=== PATIENT | male | born 1990 | race Caucasian/White ===

== ENCOUNTER → 2019-11-22 16:30 | Outpatient (BNVA) | payer SELFPAY | PROVIDERS: Family Provider Nurse Practitioner; PCP Nurse Practitioner; Visit Provider Nurse Practitioner Family | DX: R53.83 Other fatigue (principal); J30.89 Other allergic rhinitis; R03.0 Elevated blood-pressure reading, without diagnosis of hypertension; W57.XXXA Bitten or stung by nonvenomous insect and other nonvenomous arthropods, initial encounter; M25.50 Pain in unspecified joint | CPT/HCPCS: 80053; 84443; 85025; 85651 ==

== ENCOUNTER → 2020-03-18 13:33 | Outpatient (BNVA) | payer OTHER, SELFPAY | PROVIDERS: Family Provider Nurse Practitioner; PCP Nurse Practitioner; Visit Provider Internal Medicine | DX: Z20.828 Contact with and (suspected) exposure to other viral communicable diseases (principal) | CPT/HCPCS: 87635 ==

== ENCOUNTER → 2022-06-04 11:45 | Outpatient (BNVA) | payer OTHER, SELFPAY | PROVIDERS: Family Provider Nurse Practitioner; PCP Nurse Practitioner Family; Visit Provider Nurse Practitioner Family | DX: R00.2 Palpitations (principal); R53.83 Other fatigue; Z13.6 Encounter for screening for cardiovascular disorders; R03.0 Elevated blood-pressure reading, without diagnosis of hypertension; F32.A Depression, unspecified | CPT/HCPCS: 80053; 80061; 82306; 82607; 83735; 84403; 84443; 85025 ==

== ENCOUNTER → 2022-08-28 08:49 | Outpatient (BNVA) | payer OTHER, SELFPAY | PROVIDERS: Family Provider Nurse Practitioner; PCP Nurse Practitioner Family; Visit Provider Nurse Practitioner Family | DX: R53.83 Other fatigue (principal); E55.9 Vitamin D deficiency, unspecified | CPT/HCPCS: 82306; 84403 ==

== ENCOUNTER 2023-02-27 13:56 | Emergency (ER) | payer SELFPAY ==
[2023-02-27 14:30] VITALS: PULSE 119; RESP 22; TEMP 36.5; O2SAT 96; BMI 23.7
--- NOTE | 2023-02-27 14:45 | ECG_ITS ---
[facility] Test Date: 2023-02-27 Pat Name: Teja Olson Department: Room: Gender: Male [employer]: : 1990 Requested By: Howard Majano Order Number: [id number] Albert MD: Laurie Arias M.D. Measurements Intervals Mertens Rate: 84 P: 65 NE: 127 QRS: 86 QRSD: 106 T: 51 QT: 343 QTc: 407 Interpretive Statements SINUS RHYTHM INCOMPLETE RIGHT BUNDLE BRANCH BLOCK [90+ ms QRS DURATION, TERMINAL R IN V1/V2, 40+ ms S IN I/aVL/V4/V5/V6] NONSPECIFIC T-WAVE ABNORMALITY No previous ECG available for comparison Electronically Signed On 02-28-2023 10:56:07 CDT by Laurie Arias M.D. [id number]
--- NOTE | 2023-02-27 14:45 | XRR_ITS ---
PROCEDURE INFORMATION: Exam: XR Chest Exam date and time: 02/27/2023 3:21 PM Age: 32 years old Clinical indication: Other: Tachycardia TECHNIQUE: Imaging protocol: Radiologic exam of the chest. Views: 1 view. COMPARISON: CR XR chest 2V* [id number] 03/19/2017 8:52 PM FINDINGS: Lungs: Unremarkable. No consolidation. No significant change with prior exam. Pleural spaces: Unremarkable. No pleural effusion. No pneumothorax. Heart/Mediastinum: Unremarkable. No cardiomegaly. Bones/joints: Unremarkable. XR/XR chest 1V portable [id number] IMPRESSION: No acute findings.
[2023-02-27 14:59] LABS: Add Urine Microscopic? NO; Charge for UA Resulting for Rev
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
[2023-02-27 15:16] LABS: Basophils # 0.1 10^3/uL (0.0-0.1); Basophils % 0.9 %; Eosinophils # 0.2 10^3/uL (0.0-0.8); Eosinophils % 2.7 %; Hematocrit 47.2 % (37-53); Lymphocytes # 1.6 10^3/uL (0.8-4.8); Mean Corpuscular HGB Conc 32.8 g/dL (30-55); Mean Corpuscular Hemoglobin 30.5 pg (27-33); Mean Corpuscular Volume 92.7 fl (82-101); Mean Platelet Volume 10.6 fL (7.4-10.4); Monocytes # 0.7 10^3/uL (0.2-0.9); Monocytes % 9.8 %; Neutrophils # 4.85 10^3/uL (1.8-7.7); Neutrophils % 65.5 %; Nucleated Red Blood Cells % 0 %; Platelet Count 251 10^3/cmm (157-399); Red Blood Count 5.09 10^6/uL (3.85-5.65); Red Cell Distribution Width 12.7 % (12.1-15.1); White Blood Count 7.42 10^3/uL (3.29-11.43)
[2023-02-27 15:16] LABS: Amphetamines Screen Urine Negative (Negative); Barbiturates Screen Urine Negative (Negative); Benzodiazepines Screen Urine Negative (Negative); Cocaine Screen Urine Negative (Negative); Opiate Screen Urine Negative (Negative); PCP Screen Urine Negative (Negative); THC Screen Urine Negative (Negative)
[2023-02-27 15:32] LABS: Alanine Aminotransferase 19 U/L (0-41); Albumin Level 4.8 g/dL (3.5-5.2); Alkaline Phosphatase 54 U/L (40-130); Anion Gap 15.1 (5-19); Aspartate Amino Transferase 22 U/L (0-40); Blood Urea Nitrogen 11 mg/dL (6-20); Calcium 9.8 mg/dL (8.5-10.5); Carbon Dioxide 24 mmol/L (22-29); Chloride 105 mmol/L (98-107); Globulin 2.8 g/dL (1.3-4.6); Glomerular Filtration Rate 86.1 mL/min (90-130); Glucose 98 mg/dL (65-115); Osmolality Calculated 289 mOsm/kg (285-295); Potassium 4.1 mmol/L (3.5-5.1); Sodium 140 mmol/L (136-145); Total Bilirubin 0.9 mg/dL (0.15-1.2); Total Protein 7.6 g/dL (6.6-8.7)
[2023-02-27 15:34] LABS: Bilirubin Urine Neg (Negative); Blood Urine Neg (Negative); Glucose Urine UA Norm (Normal); Ketones Urine Negative (Negative); Leukocyte Esterase Urine Negative (Negative); Nitrate Urine Negative (Negative); Protein Urine Neg (Negative); Specific Gravity, Urine 1.005 (1.005-1.030); Sulfosalicylic Acid Urine Negative (Negative); Urine Appearance Clear (CLEAR); Urine Color Yellow (Yellow); Urobilinogen Urine Norm (Negative); pH Urine 8 (5-7)
[2023-02-27 15:37] LABS: Salicylate < 0.3 mg/dL (3-10)
[2023-02-27 15:38] LABS: Acetaminophen < 5.0 ug/mL (10-30); Alcohol Level < 10 mg/dL (0-10)
[2023-02-27] MEDS: LORazepam 2 mg/mL INJ 1 mL IVP (16:00)
[2023-02-27] MEDS: ondansetron 2 mg/ML SDV 2 mL 8 MG IVP (16:02)
[2023-02-27] MEDS: folic acid 1 MG, multivitamin inj 10 ML, thiamine 100 MG in sodium chloride 0.9% 1,000 ML 252.8 MG IV (16:04)
[2023-02-27 18:37] VITALS: PULSE 51; RESP 16; O2SAT 98
== END 2023-02-27 18:39 | disposition home or self-care (01) ==
PROVIDERS: Emergency Medicine; Emergency Provider Physician Assistant; PCP Nurse Practitioner Family
DX: F10.139 Alcohol abuse with withdrawal, unspecified (principal); Y90.0 Blood alcohol level of less than 20 mg/100 ml; F17.220 Nicotine dependence, chewing tobacco, uncomplicated
CPT/HCPCS: 36415; 71045; 80053; 80306; 80307; 81003; 85025; 93005; 96374; 96375; 99285; J2060; J2405; J3411; J3490; J7030